=== PATIENT | female | born 1940 | race Caucasian/White ===

== ENCOUNTER 2016-04-18 13:29 | Outpatient (CLI) | payer MEDICARE, BC | END 2016-04-18 23:59 | DX: Z79.899 Other long term (current) drug therapy (principal); E78.00 Pure hypercholesterolemia, unspecified ==

== ENCOUNTER 2016-07-08 10:30 | Outpatient (CLI) | payer MEDICARE, BC | END 2016-07-08 10:31 | disposition home or self-care (01) | DX: Z12.31 Encounter for screening mammogram for malignant neoplasm of breast (principal) ==

== ENCOUNTER 2016-07-23 11:45 | Outpatient (CLI) | payer MEDICARE, BC ==
[2016-07-23 19:37] LABS: H. PYLORI IGG ANTIBODY Negative (Negative)
[2016-07-23 19:38] LABS: HPYLORI NEG QC Negative (Negative); HPYLORI POS QC POSITIVE (Positive)
[2016-07-23 19:41] LABS: ALBUMIN/GLOBULIN RATIO 1.5 (1.0-2.2); BILIRUBIN,TOTAL 0.9 mg/dL (0.2-1.0); CALCIUM 9.3 mg/dL (8.5-10.3); POTASSIUM 3.8 mmol/L (3.5-5.0); TOTAL PROTEIN 6.8 g/dL (6.7-8.2)
[2016-07-23 19:51] LABS: BASOPHILS % (AUTO) 0.7 %; EOSINOPHILS # (AUTO) 0.1 10^3/uL (0.0-0.7); HCT - HEMATOCRIT 35.9 % (37.0-47.0); HGB - HEMOGLOBIN 11.7 g/dL (12.0-16.0); LYMPHOCYTES # (AUTO) 1.5 10^3/uL (1.5-3.5); LYMPHOCYTES % (AUTO) 28.5 %; MEAN CORPUSCULAR HEMOGLOBIN 30.2 pg (27.0-31.0); MEAN CORPUSCULAR HGB CONC 32.5 g/dL (32.0-36.0); MEAN CORPUSCULAR VOLUME 92.8 fL (81.0-99.0); MEAN PLATELET VOLUME 10.5 fL (7.9-10.8); MONOCYTES # (AUTO) 0.5 10^3/uL (0.0-1.0); MONOCYTES % (AUTO) 10.5 %; NEUTROPHILS % (AUTO) 58.3 %; NUCLEATED RED BLOOD CELLS AUTO 0.1 /100WBC; RED BLOOD COUNT 3.87 10^6/uL (4.20-5.40); RED CELL DISTRIBUTION WIDTH 13.3 % (12.0-15.0); UNCORRECTED WHITE BLOOD COUNT 5.1 x10^3/uL; WHITE BLOOD COUNT 5.1 x10^3/uL (4.8-10.8)
== END 2016-07-23 23:59 | disposition home or self-care (01) ==
LOC: LAB.WCP 11:45
PROVIDERS: ATTEND Physician Assistant Medical
DX: R19.4 Change in bowel habit (principal)
CPT/HCPCS: 36415; 80053; 82150; 83690; 84443; 85025; 87339

== ENCOUNTER 2016-07-24 11:43 | Outpatient (CLI) | payer MEDICARE, BC ==
[2016-07-25 20:42] LABS: TEST RESULT REPORT (())
== END 2016-07-24 11:44 | disposition home or self-care (01) ==
LOC: LAB.R 11:43
PROVIDERS: ATTEND Physician Assistant Medical
DX: R19.4 Change in bowel habit (principal)
CPT/HCPCS: 81599; 87045; 87046; 87177; 87209; 87329; 87338; 87493

== ENCOUNTER 2016-08-19 11:02 | Outpatient (CLI) | payer MEDICARE, BC ==
[2016-08-19] MEDS ORDERED: IOPAMIDOL-300 50 ML VIAL PO ONE (13:00)
[2016-08-19] MEDS ORDERED: IOPAMIDOL-300 100 ML VIAL IVP ONE (13:00)
--- NOTE | 2016-08-19 14:54 | CT Report ---
CONTRAST-ENHANCED CT EXAM OF THE ABDOMEN AND PELVIS: 08/19/2016 CLINICAL HISTORY: A 76-year-old female who has a change in her bowel habits as well as abdominal kevon n. TECHNIQUE: The patient received 100 mL of Isovue-300. In accordance with CT protocol optimization, one or more of the following dose reduction techniques w ere utilized for this exam: automated exposure control, adjustment of mA and/or KV based on patient size, or use of iterative reconstructive technique. FINDINGS: Lower lung garcia demonstrate some respiratory motion which obscures the detail. There is a suggestion of some mild atelectasis in the lower lobes. A 2.3 cm hypodense lesion is noted in the superior aspect of the right lobe of the liver. This most likely represents a benign cyst with CT numbers of -3.5 Hounsfield units. Spleen appears normal. Gallbladder shows no wall thickening. There is some hypodense material withi n the gallbladder that may represent sludge. Other possibility would be a small layer of noncalcifie d stones. Suggest a gallbladder ultrasound be considered for further evaluation. No wall thickening is seen. Common hepatic and common bile ducts show no significant abnormality. Pancreas appears no rmal. Adrenal glands are normal. Kidneys show no significant abnormality. Bladder is partially obscured b y bilateral total hip prostheses. Mild bladder distension is seen. Detail of other pelvic structure s are obscured by the metallic artifact as a result of the total hip prostheses. Periaortic and pericaval regions demonstrate a few small left periaortic lymph nodes, the largest of which measures 1.4 cm. This is a nonspecific finding. No significant pelvic adenopathy is seen. Vascular calcification is noted in the abdominal aorta and its iliac branches. Bowel gas pattern demonstrates the small bowel to be normal. Colon shows evidence of constipation wi th a moderate amount of stool present in the transverse and right colon. The appendix is not definit bipin seen but no evidence of inflammation is seen in the right lower quadrant. The terminal ileum guillermina ears normal. Bones demonstrate significant dextroscoliosis of the lumbar spine. Significant disk space narrowing is noted at L3-4 and L5-S1. Moderate degree of disk space narrowing is noted at L4-5. Mild spondylo listhesis is noted at L4-5. Bilateral total hip prostheses are seen. Bttpytvk-az-xmgzru central spi nal canal stenosis is seen at L4-5. IMPRESSION: 1. A 2.3 CM BENIGN CYST IS NOTED IN THE SUPERIOR ASPECT OF THE RIGHT LOBE OF THE LIVER. 2. GALLBLADDER DEMONSTRATES NONCALCIFIED DENSITIES SEEN IN ITS DEPENDENT PORTION. CANNOT EXCLUDE NO NCALCIFIED CALCULI. SUGGEST GALLBLADDER ULTRASOUND FOR FURTHER EVALUATION. 3. SIGNIFICANT OSTEOARTHRITIS OF THE LUMBAR SPINE IS SEEN WITH SIGNIFICANT DEXTROSCOLIOSIS. SEVERE CENTRAL SPINAL STENOSIS IS NOTED AT L4-5 IN ASSOCIATION WITH A GRADE 1 SPONDYLOLISTHESIS. SPONDYLOLI STHESIS MOST LIKELY IS RELATED TO OSTEOARTHRITIS OF THE FACET JOINTS. 4. CONSTIPATION. 5. [id number] NONSPECIFIC BLADDER DISTENTION. 6. BILATERAL TOTAL HIP PROSTHESES ARE SEEN IN PLACE. JOB #: [id number] EXT JOB #:[id number]
== END 2016-08-19 11:03 | disposition home or self-care (01) ==
LOC: DI 11:02
PROVIDERS: ATTEND Physician Assistant Medical
DX: K76.89 Other specified diseases of liver (principal); K82.9 Disease of gallbladder, unspecified; K59.00 Constipation, unspecified; N32.89 Other specified disorders of bladder; M47.896 Other spondylosis, lumbar region; M41.86 Other forms of scoliosis, lumbar region; M43.16 Spondylolisthesis, lumbar region; Z96.643 Presence of artificial hip joint, bilateral
CPT/HCPCS: 74177; Q9967

== ENCOUNTER 2016-09-25 08:48 | Outpatient (CLI) | payer MEDICARE, BC ==
--- NOTE | 2016-09-25 13:47 | Nuclear Medicine Report ---
EXAM: HEPATOBILIARY SCAN WITH CCK/KINEVAC ADMINISTRATION EXAM DATE: 09/25/2016 09:23 AM. CLINICAL HISTORY: DIARRHEA. COMPARISON: CT 08/19/2016. TECHNIQUE: Following the intravenous administration of 6 mCi of Tc99m Mebrofenin, a hepatobiliary sca n was done centered on the liver and gallbladder in multiple sequential images and projections. Following the intravenous administration of 1.85 mcg of CCK/ Kinevac over the course of approximately 60 minutes, dynamic imaging was done and the gallbladder ejection fraction was calculated. FINDINGS: Normal extraction of tracer from the blood pool indicating normal hepatocellular function. The liver size and shape is grossly within normal limits. There is activity visualized within the bile ducts, gallbladder, and small bowel within the first kathy r. With CCK administration, the gallbladder demonstrates an effective contraction. The gallbladder eject ion fraction is calculated to be 75%, well above the lower limit of normal of 38% for a 60-minute inj ection. The patient did not report symptoms after CCK administration. No evidence of enteric reflux into the stomach. No significant collection of tracer remaining in the common bile duct by the end of the study. IMPRESSION: 1. Patent cystic duct. 2. Patent common bile duct. 3. Negative for acute or chronic cholecystitis. 4. No enterogastric bile reflux. 5. Normal gallbladder ejection fraction of 75%. [facility] Referring Provider Line: [phone] SITE ID: [id number]
--- NOTE | 2016-09-25 13:56 | Ultrasound Report ---
RIGHT UPPER QUADRANT ULTRASOUND: 09/25/2016 CLINICAL INDICATION: Diarrhea. TECHNIQUE: Real-time scanning was performed with claim service representative static images obtained. FINDINGS: The liver measures 14.1 cm. A 3.1 x 2.4 x 2.1 cm cyst is confirmed in the superior right l obe. Hepatic echotexture is mildly increased, suspicious for mild fatty infiltration. No intrahepatic biliary dilatation or focal solid parenchymal lesion is seen. The common bile duct measures 5 mm. Th e gallbladder demonstrates tiny calculi. No wall thickening or pericholecystic fluid is present. The right kidney measures 10.3 cm, and demonstrates no hydronephrosis. No free fluid is present. IMPRESSION: CHOLELITHIASIS, WITHOUT EVIDENCE OF ACUTE CHOLECYSTITIS OR BILIARY DILATATION. JOB #: [id number] EXT JOB #:[id number]
== END 2016-09-25 08:49 | disposition home or self-care (01) ==
LOC: DI 08:48
PROVIDERS: ATTEND Physician Assistant Medical
DX: K80.20 Calculus of gallbladder without cholecystitis without obstruction (principal)
CPT/HCPCS: 76705; 78227; A9537

== ENCOUNTER 2017-03-10 08:52 | Outpatient (CLI) | payer MEDICARE, BC ==
[2017-03-10] MEDS ORDERED: IOPAMIDOL-300 100 ML VIAL ONE (09:05)
[2017-03-10] MEDS ORDERED: IOPAMIDOL-300 100 ML VIAL IVP ONE (09:21)
--- NOTE | 2017-03-10 13:30 | CT Report ---
DATE OF SERVICE: 03/10/2017 CT OF CHEST WITH CONTRAST: 03/10/2017 CLINICAL INDICATION: Pulmonary nodule. COMPARISON: 11/27/2015. TECHNIQUE: Axial CT images of the chest were obtained with 80 mL Isovue 300 intravenously FINDINGS: The heart and great vessels are unremarkable. No hilar or mediastinal lymphadenopathy is present. The pulmonary nodule in the lateral right upper lobe is stable, measuring 1.3 x 1.0 cm (previously 1. 4 x 1.1 cm). No new pulmonary nodule or mass lesion is identified. No effusion or pneumothorax is present. Osseous structures demonstrate degenerative changes. Limited evaluation of upper abdominal structures demons trates normal adrenal glands. IMPRESSION: STABLE NODULE IN THE POSTERIOR RIGHT UPPER LOBE. NO SIGNIFICANT INTERVAL CHANGE. In accordance with CT protocol optimization, one or more of the following dose reduction techniques were utilized for this exam: automated exposure control, adjustment of mA and/or KV based on patient size , or use of iterative reconstructive technique. TD: 03/10/2017 14:29
== END 2017-03-10 08:53 | disposition home or self-care (01) ==
LOC: DI 08:52
PROVIDERS: ATTEND Physician Assistant Medical
DX: R91.1 Solitary pulmonary nodule (principal)
CPT/HCPCS: 71260; Q9967

== ENCOUNTER 2017-05-30 17:04 | Outpatient (CLI) | payer MEDICARE, BC ==
--- NOTE | 2017-05-30 19:39 | XRAY Report ---
EXAMS: 1. RIGHT KNEE RADIOGRAPHY 2. LEFT KNEE RADIOGRAPHY EXAM DATE:05/30/2017 05:39 PM. CLINICAL HISTORY:Knee pain, bilateral. COMPARISON: Right knee radiographs 03/23/2007. TECHNIQUE: 3 views each. FINDINGS: Right Knee: Bones: No acute displaced fracture. No suspicious focal osseous lesion. There is diffuse osseous johnson neralization. Well-corticated osseous fragments posterior to the distal femur, possibly sequela of re mote injury or surgery. Joints: Post total knee arthroplasty without evidence of hardware loosening or complication. No effus ion. No subluxation. Soft Tissues: Possible soft tissue fullness within the infrapatellar bursa. Left Knee: Bones: No acute displaced fracture. No suspicious focal osseous lesion. There is diffuse osseous johnson neralization. Joints: Post total knee arthroplasty without evidence of hardware loosening or complication. No effus ion. No subluxation. Soft Tissues: Probable soft tissue swelling versus a small hematoma/contusion in the suprapatellar so ft tissues. Mild soft tissue fullness in the infrapatellar region/infrapatellar bursa. IMPRESSION: 1. No acute osseous abnormality or evidence of hardware loosening or failure post bilateral total kne e arthroplasty. 2. Soft tissue prominence in the infrapatellar regions bilaterally, more so on the right, possibly re presenting bursitis or a small hematoma. [facility] Referring Provider Line: [phone] SITE ID: [id number]
== END 2017-05-30 17:05 | disposition home or self-care (01) ==
LOC: DI 17:04
PROVIDERS: ATTEND Physician Assistant Medical
DX: M25.561 Pain in right knee (principal); M25.562 Pain in left knee; Z96.653 Presence of artificial knee joint, bilateral

== ENCOUNTER 2017-06-06 07:31 | Outpatient (CLI) | payer MEDICARE, BC ==
[2017-06-06 12:25] LABS: ALBUMIN 3.9 g/dL (3.2-5.5); ALBUMIN/GLOBULIN RATIO 1.4 (1.0-2.2); ALKALINE PHOSPHATASE 59 IU/L (42-121); ALT ALANINE AMINOTRANSFERASE 16 IU/L (10-60); AST ASPARTATE AMINOTRANSFERASE 23 IU/L (10-42); BILIRUBIN,TOTAL 0.6 mg/dL (0.2-1.0); BUN - BLOOD UREA NITROGEN 19 mg/dL (6-20); CALCIUM 8.6 mg/dL (8.5-10.3); CARBON DIOXIDE - CO2 30 mmol/L (21-32); CHLORIDE 96 mmol/L (101-111); CHOL/HDL RATIO 2.6 (<4.4); CHOLESTEROL 126 mg/dL; GFR - MDRD 54 (>89); GLUCOSE 88 mg/dL (70-100); HDL CHOLESTEROL 48 mg/dL; LDL CHOLESTEROL,CALCULATED 58 mg/dL; LDL/HDL RATIO 1.2 (<4.4); SODIUM 133 mmol/L (135-145); TOTAL PROTEIN 6.6 g/dL (6.7-8.2); VLDL CHOLESTEROL 20 mg/dL
== END 2017-06-06 07:32 | disposition home or self-care (01) ==
LOC: LAB.WCP 07:31
PROVIDERS: ATTEND Physician Assistant Medical
DX: E78.00 Pure hypercholesterolemia, unspecified (principal); Z51.81 Encounter for therapeutic drug level monitoring; Z79.899 Other long term (current) drug therapy
CPT/HCPCS: 36415; 80053; 80061; 83721

== ENCOUNTER 2017-07-08 08:00 | Outpatient (CLI) | payer MEDICARE, BC ==
[2017-07-08 12:45] LABS: CALCIUM 8.9 mg/dL (8.5-10.3); CREATININE 0.9 mg/dL (0.4-1.0)
== END 2017-07-08 08:01 | disposition home or self-care (01) ==
LOC: LAB.WCP 08:00
PROVIDERS: ATTEND Physician Assistant Medical
DX: I10 Essential (primary) hypertension (principal)
CPT/HCPCS: 36415; 80048

== ENCOUNTER 2017-07-10 08:19 | Outpatient (CLI) | payer MEDICARE, BC ==
--- NOTE | 2017-07-15 13:13 | Mammography Report ---
DIGITAL SCREENING MAMMOGRAM: 07/10/2017 CLINICAL INDICATION: A 76-year-old for screening. COMPARISON: 07/2016, 07/2015, 07/2014, 05/2013, 05/2012, 05/2011, 11/2010, 05/2010, 10/2009, 04/2009, 03/2009. TECHNIQUE: Routine CC and MLO projections as well as bilateral laterally exaggerated craniocaudal views were obtained of the breasts. FINDINGS: The breasts again demonstrate heterogeneously dense fibroglandular parenchyma bilaterally. Coarse and punctate, typically benign calcifications are present. No suspicious masses, clustered microcalcifications, or regions of architectural distortion are identified. IMPRESSION: BENIGN FINDINGS. RECOMMENDATION: Routine annual screening unless otherwise clinically indicated. BI-RADS CATEGORY 2 - BENIGN FINDINGS. STANDARD QUALIFYING STATEMENTS: 1. This examination was reviewed with the aid of Computer-Aided Detection (CAD). 2. A negative or benign imaging report should not delay biopsy if clinically suspicious findings are present. Consider surgical consultation if warranted. More than 5% of cancers are not identified by imaging. 3. Dense breasts may obscure an underlying neoplasm. TD: 07/15/2017 12:50
== END 2017-07-10 08:20 | disposition home or self-care (01) ==
LOC: DI 08:19
PROVIDERS: ATTEND Physician Assistant Medical
DX: Z12.31 Encounter for screening mammogram for malignant neoplasm of breast (principal)
CPT/HCPCS: 77067

== ENCOUNTER 2017-07-17 08:00 | Outpatient (CLI) | payer MEDICARE, BC | END 2017-07-17 08:01 | LOC: LAB.WCP 08:00 | PROVIDERS: ATTEND Internal Medicine Gastroenterology | DX: R19.7 Diarrhea, unspecified (principal) | CPT/HCPCS: 87493 ==

== ENCOUNTER 2018-04-08 08:24 | Outpatient (CLI) | payer MEDICARE, BC ==
[2018-04-08 12:38] LABS: ALBUMIN 3.7 g/dL (3.2-5.5); ALBUMIN/GLOBULIN RATIO 1.2 (1.0-2.2); ALKALINE PHOSPHATASE 49 IU/L (42-121); ALT ALANINE AMINOTRANSFERASE 18 IU/L (10-60); AST ASPARTATE AMINOTRANSFERASE 24 IU/L (10-42); BILIRUBIN,TOTAL 0.9 mg/dL (0.2-1.0); BUN - BLOOD UREA NITROGEN 26 mg/dL (6-20); CALCIUM 8.8 mg/dL (8.5-10.3); CARBON DIOXIDE - CO2 30 mmol/L (21-32); CHLORIDE 95 mmol/L (101-111); CHOL/HDL RATIO 2.2 (<4.4); CHOLESTEROL 124 mg/dL; CREATININE 0.9 mg/dL (0.4-1.0); GFR - MDRD 61 (>89); GLUCOSE 89 mg/dL (70-100); HDL CHOLESTEROL 57 mg/dL; LDL CHOLESTEROL,CALCULATED 54 mg/dL; LDL/HDL RATIO 0.9 (<4.4); SODIUM 133 mmol/L (135-145); TOTAL PROTEIN 6.8 g/dL (6.7-8.2); VLDL CHOLESTEROL 13 mg/dL
== END 2018-04-08 08:25 | disposition home or self-care (01) ==
LOC: LAB.WCP 08:24
PROVIDERS: ATTEND Physician Assistant Medical
DX: E78.00 Pure hypercholesterolemia, unspecified (principal); I10 Essential (primary) hypertension
CPT/HCPCS: 36415; 80053; 80061; 83721

== ENCOUNTER 2018-07-20 16:29 | Outpatient (CLI) | payer MEDICARE, BC ==
--- NOTE | 2018-07-21 10:25 | Mammography Report ---
Reason: SCREENING MAMMO Procedure Date: 07/20/2018 Accession Number: [id number] / [id number] Procedure: [facility]RA - Screening Mammo w/Mehdi CPT Code: FULL RESULT: EXAM: Screening Mammo w/Mehdi DATE: 07/20/2018 4:58 PM CLINICAL HISTORY: Screening encounter. 14 years of hormone cream use. TECHNIQUE: (B) - Bilateral CC, laterally exaggerated CC, MLO views were obtained. COMPARISON: 07/10/2017 through 07/26/2014. PARENCHYMAL PATTERN: (D) - The breast(s) demonstrate(s) heterogeneously dense fibroglandular parenchyma. FINDINGS: There are coarse typically benign calcifications. There are no suspicious masses, calcifications, or areas of distortion. IMPRESSION: Benign findings. BI-RADS category 2. RECOMMENDATION: (ANNUAL) - Recommend routine annual screening mammography. BI-RADS CATEGORY: (2) - Benign Findings. STANDARD QUALIFYING STATEMENTS: 1. This examination was not reviewed with the aid of Computer-Aided Detection (CAD). 2. A negative or benign imaging report should not preclude biopsy if clinically suspicious findings are present. 3. Dense breasts may obscure an underlying neoplasm. 4. This examination was reviewed with the aid of 3D breast imaging (tomosynthesis).
== END 2018-07-20 16:30 | disposition home or self-care (01) ==
LOC: DI 16:29
DX: Z12.31 Encounter for screening mammogram for malignant neoplasm of breast (principal)
CPT/HCPCS: 77063; 77067

== ENCOUNTER 2019-02-17 09:21 | Outpatient (CLI) | payer MEDICARE, BC ==
--- NOTE | 2019-02-17 18:33 | XRAY Report ---
Reason: COUGH Procedure Date: 02/17/2019 Accession Number: [id number] / [id number] Procedure: WCP - Chest 2 View X-Ray CPT Code: 64261 Final Report FULL RESULT: EXAM: CHEST RADIOGRAPHY EXAM DATE: 02/17/2019 09:21 AM. CLINICAL HISTORY: Cough and congestion for 2 weeks. COMPARISON: CHEST 2 VIEW PA/LAT 10/27/2015 7:04 PM. TECHNIQUE: 2 views. FINDINGS: Lungs/Pleura: Right upper lobe nodule is smaller, 7 mm size. No other focal opacities evident. No pleural effusion. No pneumothorax. Normal volumes. Mediastinum: Heart and mediastinal contours are unremarkable. Other: Stable mild T9 compression fracture, otherwise no bony abnormality identified. IMPRESSION: 1. Right upper lobe nodule, smaller than prior exam, otherwise clear lungs. 2. Stable T9 compression fracture. [facility]
== END 2019-02-17 23:59 | disposition home or self-care (01) ==
LOC: DI.WCP 09:21
PROVIDERS: ATTEND Nurse Practitioner Family
DX: R05 Cough (principal); R91.1 Solitary pulmonary nodule
CPT/HCPCS: 71046

== ENCOUNTER 2019-08-06 07:36 | Outpatient (CLI) | payer MEDICARE, BC ==
--- NOTE | 2019-08-06 09:51 | XRAY Report ---
Reason: DYSPNEA ON EXERTION Procedure Date: 08/06/2019 Accession Number: [id number] / [id number] Procedure: WCP - Chest 2 View X-Ray CPT Code: 18280 Final Report FULL RESULT: PROCEDURE: Chest 2 View X-Ray INDICATIONS: DYSPNEA ON EXERTION TECHNIQUE: 2 view(s) of the chest. COMPARISON: CXR 02/17/2019 FINDINGS: Surgical changes and devices: None. Lungs and pleura: No pleural effusions or pneumothorax. There is a mild retrocardiac opacity seen on lateral view. Mediastinum: Mediastinal contours are normal. Heart size is enlarged. Bones and chest wall: No suspicious bony abnormalities. Soft tissues appear unremarkable. IMPRESSION: Mild retrocardiac opacity seen on lateral view. Recommend short interval imaging follow-up after appropriate therapy for infectious etiology such as pneumonia to document resolution and exclude presence of neoplastic mass lesion. Reviewed by: Hanna Almonte MD on 08/06/2019 9:50 AM PDT Approved by: Hanna Almonte MD on 08/06/2019 9:50 AM PDT Station ID: [id number]
[2019-08-06 11:47] LABS: MEAN CORPUSCULAR HEMOGLOBIN 29.9 pg (27.0-31.0); MEAN CORPUSCULAR HGB CONC 31.7 g/dL (32.0-36.0); MEAN CORPUSCULAR VOLUME 94.3 fL (81.0-99.0); MEAN PLATELET VOLUME 11.4 fL (7.9-10.8); RED BLOOD COUNT 4.01 10^6/uL (4.20-5.40); RED CELL DISTRIBUTION WIDTH 12.5 % (12.0-15.0); WHITE BLOOD COUNT 4.7 x10^3/uL (4.8-10.8)
[2019-08-06 12:12] LABS: CALCIUM 8.7 mg/dL (8.5-10.3); CREATININE 0.9 mg/dL (0.4-1.0)
== END 2019-08-06 07:37 | disposition home or self-care (01) ==
LOC: DI.WCP 07:36
PROVIDERS: ATTEND Family Medicine
DX: R91.8 Other nonspecific abnormal finding of lung field (principal); R06.09 Other forms of dyspnea
CPT/HCPCS: 36415; 71046; 80048; 83880; 85027

== ENCOUNTER 2019-08-26 08:06 | Outpatient (CLI) | payer MEDICARE, BC | END 2019-08-26 08:07 | disposition home or self-care (01) | LOC: DI 08:06 | PROVIDERS: ATTEND Family Medicine | DX: I51.9 Heart disease, unspecified (principal); I49.3 Ventricular premature depolarization; I51.7 Cardiomegaly | CPT/HCPCS: 93306 ==

== ENCOUNTER 2019-09-08 12:16 | Outpatient (CLI) | payer MEDICARE, BC ==
[2019-09-08] MEDS ORDERED: REGADENOSON 0.4 MG/5 ML SYRINGE IVP ONE ×2 (13:32→14:57)
[2019-09-08] MEDS ORDERED: AMINOPHYLLINE 250 MG/10 ML VIAL ONE (13:33)
--- NOTE | 2019-09-08 14:49 | CARDIAC PROCEDURE NOTE ---
DATE OF SERVICE: 09/08/2019 Physician: Lidia Sánchez MD, [facility] INDICATION: Dyspnea on exertion. CARDIAC RISK FACTORS: Advanced age, postmenopausal status, hypertension, hyperlipidemia, family history of heart disease. DESCRIPTION OF PROCEDURE: After signing informed consent, the patient underwent a Lexiscan pharmaceutical stress test with nuclear myocardial perfusion imaging. RESTING HEART RATE: 58. PEAK HEART RATE: 75. RESTING BLOOD PRESSURE: 123/70. PEAK BLOOD PRESSURE: 132/66. Lexiscan was infused per protocol. The patient described mild to moderate shortness of breath, and no other symptoms. Oxygen saturation was 99% on room air throughout the entire test. RESTING EKG: Ectopic atrial rhythm, frequent PAC's, otherwise WNL. EKG AT PEAK: No new ST-segment or T-wave changes to suggest ischemia. SUMMARY 1. Abnormal resting EKG. 2. No EKG changes developed to suggest ischemia. 3. The patient did report "shortness of breath" but appeared comfortable, respiratory rate did not increase, oxygen saturation remained 99% on room air at this point. 4. Nuclear images reported separately. 5. This patient's cardiac risk based on all the above: Moderate. cc: Marlyn Vazquez DO TD: 09/08/2019 14:35 [facility]
--- NOTE | 2019-09-09 10:05 | Nuclear Medicine Report ---
PROCEDURE: Rest and exercise myocardial perfusion SPECT with gated imaging and ejection fraction INDICATIONS: DYSPNEA ON EXERTION RADIOPHARMACEUTICAL: 15.9 mCi Tc-99m sestamibi IV at rest and 47.8 mCi Tc-99m sestamibi IV at peak e xercise. Nbi-xhw-wmbwxvbr was performed. TECHNIQUE: Radiopharmaceutical was injected at peak stress test, and also at rest. SPECT images wer e obtained. SPECT myocardial perfusion images were displayed in short axis, horizontal long axis, an d vertical long axis views. Gated images were reviewed using AutoQUANT software. COMPARISON: None. FINDINGS: Raw data: There is good myocardial labeling by radiotracer. No significant motion artifacts. Lung- to-heart ratio is 0.32 (normal is less than 0.38 for tetrafosmin tracer). Left ventricle function: Gated images demonstrate normal left ventricle wall thickening. No segment al wall motion abnormality. No transient ischemic dilation; TID is 1.07 (normal less than 1.3). The left ventricle resting end-diastolic volume is mL. Left ventricle stress ejection fraction is 8 3%; normal values are above 45%. Myocardial perfusion: There is normal distribution of activity in the left and right ventricular emma cardium. No fixed or reversible perfusion defects. IMPRESSION: 1. Normal myocardial perfusion study with no fixed or reversible perfusion defects. 2. Normal left ventricular function with no segmental wall motion abnormalities and normal stress LVE F of 83%. PQRS ATTESTATIONS: Measure 322 - Is this imaging test primarily performed on a low-risk surgery patient for preoperative evaluation within 30 days preceding their low-risk non-cardiac surgery? Low-risk surgery is defined as cardiac or myocardial infarction less than 1%, including (but not limited to) endoscopic pr ocedures, superficial procedures, cataract surgery, and excisional breast surgery: Answer: No Measure 323 - Is this imaging test performed primarily for the monitoring of an asymptomatic patient who had percutaneous coronary intervention on the visit date or within 2 years of the visit date? An swer: No Measure 324 - Is this imaging test performed primarily for the initial detection and risk assessment on an asymptomatic, low coronary heart disease patient? Low CHD risk definition = clinicians should consider the maximum number of available patient factors used to estimate risk based on [place] (A TP III criteria), typically age, gender, diabetes, smoking status, and use of blood pressure medicati on, and integrate age appropriate estimates for missing elements, such as LDL or standard blood press ure. Answer: No Reviewed by: Rebeka Ordoñez MD, PhD on 09/09/2019 10:03 AM PDT Approved by: Rebeka Ordoñez MD, PhD on 09/09/2019 10:03 AM PDT Station ID: [id number]
== END 2019-09-08 12:17 | disposition home or self-care (01) ==
LOC: DI 12:16
PROVIDERS: ATTEND Family Medicine
DX: R94.31 Abnormal electrocardiogram [ECG] [EKG] (principal); I10 Essential (primary) hypertension; E78.5 Hyperlipidemia, unspecified; Z78.0 Asymptomatic menopausal state; Z82.49 Family history of ischemic heart disease and other diseases of the circulatory system
CPT/HCPCS: 78452; 93016; 93017; 93018; A9500; J2785

== ENCOUNTER 2019-09-08 12:41 | Outpatient (CLI) | payer MEDICARE, BC ==
[2019-09-08] MEDS ORDERED: REGADENOSON 0.4 MG/5 ML SYRINGE IVP ONE (13:28)
[2019-09-08] MEDS ORDERED: AMINOPHYLLINE 250 MG/10 ML VIAL ONE (13:30)
--- NOTE | 2019-09-09 08:54 | Mammography Report ---
BILATERAL DIGITAL SCREENING MAMMOGRAM 3D/2D: 09/08/2019 CLINICAL: Routine screening. Comparison is made to exams dated: 07/20/2018 mammogram, 07/10/2017 mammogram, and 07/08/2016 mammogram - [facility]. The tissue of both breasts is heterogeneously dense. This may lower the sensitivity of mammography. No significant masses, calcifications, or other findings are seen in either breast. There has been no significant interval change. IMPRESSION: NEGATIVE There is no mammographic evidence of malignancy. A 1 year screening mammogram is recommended. This exam was interpreted at Station ID: [id number]. NOTE: For mammograms, a report in lay terms will be sent to the patient. Approximately 15% of breast malignancies will not be visualized mammographically. In the management of a palpable breast mass, a negative mammogram must not discourage biopsy of a clinically suspicious lesion. Electronically Signed By: Eusebia jose/kerarad:09/08/2019 16:55:22 ACR BI-RADS Category 1: Negative 3341F PARENCHYMAL PATTERN: (D) - The breast(s) demonstrate(s) heterogeneously dense fibroglandular ravi pacheco. BI-RADS CATEGORY: (1) - 1 RECOMMENDATION: (ANNUAL) - Recommend routine annual screening mammography. [id number] 1 year screening LATERALITY: (B)
== END 2019-09-08 12:42 | disposition home or self-care (01) ==
LOC: DI 12:41
DX: Z12.31 Encounter for screening mammogram for malignant neoplasm of breast (principal)
CPT/HCPCS: 77063; 77067

== ENCOUNTER 2020-03-17 09:27 | Outpatient (CLI) | payer MEDICARE, BC ==
[2020-03-17 12:45] LABS: CALCIUM 9.2 mg/dL (8.5-10.3); CREATININE 1.1 mg/dL (0.4-1.0)
== END 2020-03-17 09:28 | disposition home or self-care (01) ==
LOC: LAB.N 09:27
PROVIDERS: ATTEND Physician Assistant Medical
DX: I10 Essential (primary) hypertension (principal)
CPT/HCPCS: 36415; 80048

== ENCOUNTER 2020-05-02 08:00 | Outpatient (CLI) | payer MEDICARE, BC ==
[2020-05-02 12:25] LABS: CALCIUM 8.9 mg/dL (8.5-10.3); CREATININE 1.2 mg/dL (0.4-1.0)
== END 2020-05-02 23:59 | disposition home or self-care (01) ==
LOC: LAB.WCP 08:00
PROVIDERS: ATTEND Physician Assistant Medical
DX: N18.9 Chronic kidney disease, unspecified (principal)
CPT/HCPCS: 36415; 80048

== ENCOUNTER 2020-09-08 08:00 | Outpatient (CLI) | payer MEDICARE, BC ==
[2020-09-08 13:11] LABS: ALBUMIN 4.2 g/dL (3.2-5.5); ALBUMIN/GLOBULIN RATIO 1.5 (1.0-2.2); ALKALINE PHOSPHATASE 60 IU/L (42-121); ALT ALANINE AMINOTRANSFERASE 17 IU/L (10-60); AST ASPARTATE AMINOTRANSFERASE 25 IU/L (10-42); BILIRUBIN,TOTAL 0.9 mg/dL (0.2-1.0); BUN - BLOOD UREA NITROGEN 22 mg/dL (6-20); CALCIUM 9.1 mg/dL (8.5-10.3); CARBON DIOXIDE - CO2 31 mmol/L (21-32); CHLORIDE 98 mmol/L (101-111); CHOL/HDL RATIO 2.7 (<4.4); CHOLESTEROL 138 mg/dL; CREATININE 1.1 mg/dL (0.4-1.0); GFR - MDRD 48 (>89); GLUCOSE 89 mg/dL (70-100); HDL CHOLESTEROL 51 mg/dL; LDL CHOLESTEROL,CALCULATED 70 mg/dL; LDL/HDL RATIO 1.4 (<4.4); SODIUM 137 mmol/L (135-145); TRIGLYCERIDES 83 mg/dL; VLDL CHOLESTEROL 17 mg/dL
== END 2020-09-08 08:01 | disposition home or self-care (01) ==
LOC: LAB.WCP 08:00
PROVIDERS: ATTEND Physician Assistant Medical
DX: E78.5 Hyperlipidemia, unspecified (principal)
CPT/HCPCS: 36415; 80053; 80061; 83721

== ENCOUNTER 2020-10-03 14:16 | Outpatient (CLI) | payer MEDICARE, BC ==
--- NOTE | 2020-10-04 15:25 | Mammography Report ---
BILATERAL DIGITAL SCREENING MAMMOGRAM 3D/2D: 10/03/2020 CLINICAL: Routine screening. Comparison is made to exams dated: 09/08/2019 mammogram, 07/20/2018 mammogram, 07/10/2017 mammogram, 07/08 mammogram, 07/19/2015 mammogram, and 07/26/2014 mammogram - [facility]. The ti ssue of both breasts is heterogeneously dense. This may lower the sensitivity of mammography. There are benign calcifications in both breasts. No significant masses, calcifications, or other findings are seen in either breast. There has been no significant interval change. IMPRESSION: BENIGN There is no mammographic evidence of malignancy. A 1 year screening mammogram is recommended. This exam was interpreted at Station ID: [id number]. NOTE: For mammograms, a report in lay terms will be sent to the patient. Approximately 15% of breast malignancies will not be visualized mammographically. In the management of a palpable breast mass, a negative mammogram must not discourage biopsy of a clinically suspicious lesion. Electronically Signed By: Hill Schulz acr/penrad:10/03/2020 14:58:54 ACR BI-RADS Category 2: Benign Finding(s) 3342F PARENCHYMAL PATTERN: (D) - The breast(s) demonstrate(s) heterogeneously dense fibroglandular ravi pacheco. BI-RADS CATEGORY: (2) - 2 RECOMMENDATION: (ANNUAL) - Recommend routine annual screening mammography. [id number] 1 year screening LATERALITY: (B)
== END 2020-10-03 14:17 | disposition home or self-care (01) ==
LOC: DI 14:16
DX: Z12.31 Encounter for screening mammogram for malignant neoplasm of breast (principal)

== ENCOUNTER 2020-12-21 15:37 | Outpatient (CLI) | payer MEDICARE, BC | END 2020-12-21 15:38 | disposition home or self-care (01) | LOC: COV 15:37 | PROVIDERS: ATTEND Family Medicine | DX: Z20.822 Contact with and (suspected) exposure to COVID-19 (principal) ==

== ENCOUNTER 2021-01-11 07:52 | Outpatient (CLI) | payer MEDICARE, BC ==
[2021-01-11 12:21] LABS: CALCIUM 9.3 mg/dL (8.5-10.3); POTASSIUM 4.3 mmol/L (3.5-5.0)
== END 2021-01-11 23:59 | disposition home or self-care (01) ==
LOC: LAB.WCP 07:52
PROVIDERS: ATTEND Physician Assistant Medical
DX: N18.9 Chronic kidney disease, unspecified (principal)
CPT/HCPCS: 36415; 80048

== ENCOUNTER 2021-07-12 08:53 | Outpatient (CLI) | payer MEDICARE, BC ==
[2021-07-12 12:11] LABS: BASOPHILS % (AUTO) 0.5 %; EOSINOPHILS # (AUTO) 0.2 10^3/uL (0.0-0.7); EOSINOPHILS % (AUTO) 2.9 %; HCT - HEMATOCRIT 38.6 % (37.0-47.0); HGB - HEMOGLOBIN 12.2 g/dL (12.0-16.0); LYMPHOCYTES # (AUTO) 1.7 10^3/uL (1.5-3.5); LYMPHOCYTES % (AUTO) 28.2 %; MEAN CORPUSCULAR HEMOGLOBIN 30.7 pg (27.0-31.0); MEAN CORPUSCULAR HGB CONC 31.6 g/dL (32.0-36.0); MEAN PLATELET VOLUME 11.9 fL (7.9-10.8); MONOCYTES # (AUTO) 0.4 10^3/uL (0.0-1.0); NEUTROPHILS # (AUTO) 3.6 10^3/uL (1.5-6.6); NEUTROPHILS % (AUTO) 61.2 %; PLT - PLATELET COUNT 180 10^3/uL (130-450); RED BLOOD COUNT 3.98 10^6/uL (4.20-5.40); RED CELL DISTRIBUTION WIDTH 12.9 % (12.0-15.0); WHITE BLOOD COUNT 5.9 x10^3/uL (4.8-10.8)
[2021-07-12 12:25] LABS: ALBUMIN 4.2 g/dL (3.2-5.5); ALBUMIN/GLOBULIN RATIO 1.5 (1.0-2.2); ALKALINE PHOSPHATASE 61 IU/L (42-121); ALT ALANINE AMINOTRANSFERASE 20 IU/L (10-60); AST ASPARTATE AMINOTRANSFERASE 27 IU/L (10-42); BILIRUBIN,TOTAL 0.9 mg/dL (0.2-1.0); BUN - BLOOD UREA NITROGEN 23 mg/dL (6-20); CALCIUM 9.2 mg/dL (8.5-10.3); CARBON DIOXIDE - CO2 29 mmol/L (21-32); CHLORIDE 99 mmol/L (101-111); CHOLESTEROL 153 mg/dL; CREATININE 1.1 mg/dL (0.4-1.0); GFR - MDRD 48 (>89); GLUCOSE 100 mg/dL (70-100); HDL CHOLESTEROL 51 mg/dL; LDL CHOLESTEROL,CALCULATED 77 mg/dL; LDL/HDL RATIO 1.5 (<4.4); POTASSIUM 4.1 mmol/L (3.5-5.0); SODIUM 136 mmol/L (135-145); TRIGLYCERIDES 127 mg/dL; VLDL CHOLESTEROL 25 mg/dL
== END 2021-07-12 08:54 | disposition home or self-care (01) ==
LOC: LAB.N 08:53
PROVIDERS: ATTEND Physician Assistant Medical
DX: E78.5 Hyperlipidemia, unspecified (principal); I10 Essential (primary) hypertension
CPT/HCPCS: 36415; 80053; 80061; 83721; 85025

== ENCOUNTER 2022-01-04 07:17 | Outpatient (CLI) | payer MEDICARE, BC ==
[2022-01-04 12:45] LABS: ALBUMIN 4.1 g/dL (3.2-5.5); ALBUMIN/GLOBULIN RATIO 1.4 (1.0-2.2); BILIRUBIN,TOTAL 0.9 mg/dL (0.2-1.0); CALCIUM 9.2 mg/dL (8.5-10.3)
== END 2022-01-04 07:18 | disposition home or self-care (01) ==
LOC: LAB.N 07:17
PROVIDERS: ATTEND Physician Assistant Medical
DX: E78.5 Hyperlipidemia, unspecified (principal)
CPT/HCPCS: 36415; 80053

== ENCOUNTER 2022-03-14 09:33 | Outpatient (CLI) | payer MEDICARE, BC ==
--- NOTE | 2022-03-15 12:50 | Mammography Report ---
BILATERAL DIGITAL SCREENING MAMMOGRAM 3D/2D: 03/14/2022 CLINICAL: Routine screening. Comparison is made to exams dated: 10/03/2020 mammogram, 09/08/2019 mammogram, 07/20/2018 mammogram, 07/10 mammogram, 07/08/2016 mammogram, and 07/19/2015 mammogram - [facility]. Both breasts are heterogeneously dense, which may obscure small masses (category c / 51-75% glandular tissue). There are benign calcifications in both breasts. No significant masses, calcifications, or other findings are seen in either breast. There has been no significant interval change. IMPRESSION: BENIGN There is no mammographic evidence of malignancy. A 1 year screening mammogram is recommended. Based on the Tyrer Cuzick model (a risk assessment model) the patients lifetime risk is 3.1% and her 10 year risk is 0.0%. According to the ACR, ACS, and NCCN guidelines, an annual breast MRI exam jerald g with mammogram is recommended if the patients lifetime risk is 20% or greater. This exam was interpreted at Station ID: [id number]. NOTE: For mammograms, a report in lay terms will be sent to the patient. Approximately 15% of breast malignancies will not be visualized mammographically. In the management of a palpable breast mass, a negative mammogram must not discourage biopsy of a clinically suspicious lesion. Electronically Signed By: Jed Johnson M.D. atharmeet/kerarad:03/14/2022 10:48:32 ACR BI-RADS Category 2: Benign Finding(s) 3342F PARENCHYMAL PATTERN: (D) - The breast(s) demonstrate(s) heterogeneously dense fibroglandular parenchy ma. BI-RADS CATEGORY: (2) - 2 RECOMMENDATION: (ANNUAL) - Recommend routine annual screening mammography. [id number] 1 year screening LATERALITY: (B)
== END 2022-03-14 09:34 | disposition home or self-care (01) ==
LOC: DI.N 09:33
DX: Z12.31 Encounter for screening mammogram for malignant neoplasm of breast (principal)

== ENCOUNTER 2022-06-03 06:59 | Outpatient (CLI) | payer MEDICARE, BC ==
--- NOTE | 2022-06-03 17:21 | Ultrasound Report ---
PROCEDURE: Carotid Doppler Complete INDICATIONS: NECK PAIN TECHNIQUE: Color and pulse Doppler interrogation was performed of both carotid systems, with image documentation and velocity measurements. COMPARISON: None. FINDINGS: Right side: Brachial blood pressure: 140/89 mm Hg. Common carotid artery peak systolic velocity: 62 cm/sec. Internal carotid artery peak systolic velocity: 102 cm/sec. Internal carotid artery end diastolic velocity: 30 cm/sec. External carotid artery peak systolic velocity: 69 cm/sec. ICA/CCA peak systolic ratio: 1.5 . Billy scale imaging description: Moderate plaque at bifurcation Percent internal carotid artery stenosis: Less than 50% . Vertebral artery: Flow direction is antegrade. Left side: Brachial blood pressure: 140/85 mm Hg. Common carotid artery peak systolic velocity: 55 cm/sec. Internal carotid artery peak systolic velocity: 82 cm/sec. Internal carotid artery end diastolic velocity: 31 cm/sec. External carotid artery peak systolic velocity: 56 cm/sec. ICA/CCA peak systolic ratio: 1.2 . Billy scale imaging description: Moderate plaque at bifurcation Percent internal carotid artery stenosis: Less than 50% . Vertebral artery: Flow direction is antegrade. IMPRESSION: Less than 50% stenosis of the internal carotid arteries bilaterally. The estimate of stenosis included in the report of the imaging study was calculated using the NASCET method Reviewed by: Hanna Almonte MD on 06/03/2022 5:19 PM PDT Approved by: Hanna Almonte MD on 06/03/2022 5:19 PM PDT Station ID: [id number]
== END 2022-06-03 07:00 | disposition home or self-care (01) ==
LOC: DI 06:59
PROVIDERS: ATTEND Physician Assistant Medical
DX: M54.2 Cervicalgia (principal); I65.23 Occlusion and stenosis of bilateral carotid arteries
CPT/HCPCS: 93880

== ENCOUNTER 2022-07-02 07:21 | Outpatient (CLI) | payer MEDICARE, BC ==
[2022-07-02 11:56] LABS: BASOPHILS % (AUTO) 0.7 %; EOSINOPHILS # (AUTO) 0.2 10^3/uL (0.0-0.7); EOSINOPHILS % (AUTO) 3.9 %; HCT - HEMATOCRIT 37.5 % (37.0-47.0); HGB - HEMOGLOBIN 11.6 g/dL (12.0-16.0); LYMPHOCYTES # (AUTO) 1.9 10^3/uL (1.5-3.5); LYMPHOCYTES % (AUTO) 34.9 %; MEAN CORPUSCULAR HEMOGLOBIN 30.1 pg (27.0-31.0); MEAN CORPUSCULAR HGB CONC 30.9 g/dL (32.0-36.0); MEAN CORPUSCULAR VOLUME 97.2 fL (81.0-99.0); MEAN PLATELET VOLUME 12.1 fL (7.9-10.8); MONOCYTES # (AUTO) 0.4 10^3/uL (0.0-1.0); MONOCYTES % (AUTO) 7.1 %; NEUTROPHILS # (AUTO) 2.9 10^3/uL (1.5-6.6); NEUTROPHILS % (AUTO) 53.2 %; PLT - PLATELET COUNT 153 10^3/uL (130-450); RED BLOOD COUNT 3.86 10^6/uL (4.20-5.40); RED CELL DISTRIBUTION WIDTH 13.2 % (12.0-15.0); WHITE BLOOD COUNT 5.4 x10^3/uL (4.8-10.8)
[2022-07-02 12:27] LABS: ALBUMIN 3.9 g/dL (3.2-5.5); ALBUMIN/GLOBULIN RATIO 1.4 (1.0-2.2); ALKALINE PHOSPHATASE 62 IU/L (42-121); ALT ALANINE AMINOTRANSFERASE 20 IU/L (10-60); AST ASPARTATE AMINOTRANSFERASE 26 IU/L (10-42); BILIRUBIN,TOTAL 0.5 mg/dL (0.2-1.0); BUN - BLOOD UREA NITROGEN 22 mg/dL (6-20); CALCIUM 9.1 mg/dL (8.5-10.3); CARBON DIOXIDE - CO2 32 mmol/L (21-32); CHLORIDE 105 mmol/L (101-111); CHOL/HDL RATIO 2.6 (<4.4); CHOLESTEROL 136 mg/dL; GFR - MDRD 53 (>89); GLUCOSE 98 mg/dL (70-100); HDL CHOLESTEROL 52 mg/dL; LDL CHOLESTEROL,CALCULATED 60 mg/dL; LDL/HDL RATIO 1.2 (<4.4); POTASSIUM 4.3 mmol/L (3.5-5.0); SODIUM 142 mmol/L (135-145); TOTAL PROTEIN 6.6 g/dL (6.7-8.2); TRIGLYCERIDES 122 mg/dL; VLDL CHOLESTEROL 24 mg/dL
== END 2022-07-02 07:22 | disposition home or self-care (01) ==
LOC: LAB.N 07:21
PROVIDERS: ATTEND Physician Assistant Medical
DX: E78.5 Hyperlipidemia, unspecified (principal); I10 Essential (primary) hypertension
CPT/HCPCS: 36415; 80053; 80061; 83721; 85025

== ENCOUNTER 2022-08-14 12:38 | Outpatient (CLI) | payer MEDICARE, BC ==
--- NOTE | 2022-08-14 14:13 | Ultrasound Report ---
PROCEDURE: Ext Limited Non Vascular INDICATIONS: SOFT TISSUE MASS TECHNIQUE: Real-time scanning was performed of the antecubital fossa, with image documentation. COMPARISON: None. FINDINGS: Targeted ultrasound of the intervertebral fossa demonstrates a nonocclusive thrombus with slow vascular flow within a superficial vein. IMPRESSION: Superficial thrombosis in the right antecubital vein, and region of concern. Reviewed by: Shiva Hale on 08/14/2022 2:12 PM PDT Approved by: Shiva Hale on 08/14/2022 2:12 PM PDT Station ID: [id number]
== END 2022-08-14 12:39 | disposition home or self-care (01) ==
LOC: DI 12:38
PROVIDERS: ATTEND Physician Assistant Medical
DX: I82.611 Acute embolism and thrombosis of superficial veins of right upper extremity (principal)

== ENCOUNTER 2023-01-09 08:16 | Outpatient (CLI) | payer MEDICARE, BC ==
[2023-01-09 11:59] LABS: ALBUMIN 3.9 g/dL (3.2-5.5); ALBUMIN/GLOBULIN RATIO 1.5 (1.0-2.2); ALKALINE PHOSPHATASE 68 IU/L (42-121); ALT ALANINE AMINOTRANSFERASE 17 IU/L (10-60); AST ASPARTATE AMINOTRANSFERASE 21 IU/L (10-42); BILIRUBIN,TOTAL 0.6 mg/dL (0.2-1.0); BUN - BLOOD UREA NITROGEN 21 mg/dL (6-20); CALCIUM 9.2 mg/dL (8.5-10.3); CARBON DIOXIDE - CO2 32 mmol/L (21-32); CHLORIDE 103 mmol/L (101-111); CHOL/HDL RATIO 2.5 (<4.4); CHOLESTEROL 119 mg/dL; GFR - MDRD 53 (>89); GLUCOSE 87 mg/dL (74-104); HDL CHOLESTEROL 47 mg/dL; LDL CHOLESTEROL,CALCULATED 49 mg/dL; POTASSIUM 4.5 mmol/L (3.5-4.5); SODIUM 138 mmol/L (135-145); TOTAL PROTEIN 6.5 g/dL (6.4-8.9); TRIGLYCERIDES 117 mg/dL (48-352); VLDL CHOLESTEROL 23 mg/dL
== END 2023-01-09 08:17 | disposition home or self-care (01) ==
LOC: LAB.N 08:16
PROVIDERS: ATTEND Physician Assistant Medical
DX: E78.5 Hyperlipidemia, unspecified (principal)
CPT/HCPCS: 36415; 80053; 80061; 83721

== ENCOUNTER 2023-01-25 13:12 | Outpatient (CLI) | payer MEDICARE, BC ==
--- NOTE | 2023-01-26 11:44 | XRAY Report ---
PROCEDURE: Lumbar Spine 2 View INDICATIONS: BACK PAIN TECHNIQUE: 3 views of the lumbar spine were acquired. COMPARISON: Lumbar spine radiograph on November 27, 2015 FINDINGS: Bones: 5 dcj-gui-ndrowod vertebrae are present. Diffuse osseous demineralization and overlying bowel gas limit evaluation for subtle fracture. Within these limitations, no acute fracture or traumatic s ubluxation. 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 Grade 1 anterolisthesis of L4 and L5 of approximately 1 cm, as before. Moderate to marked multilevel degenerative changes of the spine with osteophytosis, disc height loss and facet arthropathy. Partially visualized bilateral total hip arthroplasties. Soft tissues: Overlying bowel gas pattern is normal. No suspicious soft tissue calcifications. Abo ve-average colonic stool burden. IMPRESSION: 1. Diffuse osseous demineralization and bowel gas limit evaluation for subtle nondisplaced fracture. Within these limitations, no acute fracture or traumatic subluxation. If pain persists, consider cros s-sectional imaging for further evaluation. 2. Above-average colonic stool burden which may correlate with constipation. Reviewed by: Johana Duran MD on 01/26/2023 11:43 AM PST Approved by: Johana Duran MD on 01/26/2023 11:43 AM PST Station ID: [id number]
--- NOTE | 2023-01-26 11:49 | XRAY Report ---
PROCEDURE: Thoracic Spine 2 View INDICATIONS: BACK PAIN TECHNIQUE: 2 views of the thoracic spine were acquired. COMPARISON: CT chest on March 10, 2017 FINDINGS: Bones: No fractures or dislocations. No suspicious bony lesions. 12 pairs of ribs are noted, and a ppear intact where visualized. Moderate multilevel degenerative changes with osteophytosis, disc hei ght loss and facet arthropathy. Mild anterior wedging of the lower thoracic vertebral bodies, stable compared to prior CT. Soft tissues: No paravertebral stripe thickening. Visualized lungs are clear. Normal mediastinal con tour. IMPRESSION: 1.No acute bony abnormality. 2.Moderate multilevel degenerative changes of the spine. Reviewed by: Johana Duran MD on 01/26/2023 11:48 AM PST Approved by: Johana Duran MD on 01/26/2023 11:48 AM PST Station ID: [id number]
--- NOTE | 2023-01-26 11:51 | XRAY Report ---
PROCEDURE: Cervical Spine 2 View INDICATIONS: BACK PAIN TECHNIQUE: 3 view(s) of the cervical spine were acquired. COMPARISON: None. FINDINGS: Bones: Lateral view extends from the skull base to C7. No acute fracture or traumatic subluxation. Ma rked multilevel degenerative changes with anterior osteophytosis, disc height loss and facet arthropa thy/uncal hypertrophy, notably at C4-C5 and C5-C6. Soft tissues: No prevertebral soft tissue swelling. Visualized lungs are clear. IMPRESSION: 1.No acute fracture or traumatic subluxation. 2.Marked multilevel degenerative changes of the spine, notably at C4-5 and C5-6. Reviewed by: Johana Duran MD on 01/26/2023 11:50 AM PST Approved by: Johana Duran MD on 01/26/2023 11:50 AM PST Station ID: [id number]
== END 2023-01-25 13:13 | disposition home or self-care (01) ==
LOC: DI 13:12
PROVIDERS: ATTEND Physician Assistant Medical
DX: M47.816 Spondylosis without myelopathy or radiculopathy, lumbar region (principal); M51.86 Other intervertebral disc disorders, lumbar region; M47.814 Spondylosis without myelopathy or radiculopathy, thoracic region; M51.84 Other intervertebral disc disorders, thoracic region; M47.812 Spondylosis without myelopathy or radiculopathy, cervical region; M50.821 Other cervical disc disorders at C4-C5 level; M81.0 Age-related osteoporosis without current pathological fracture

== ENCOUNTER 2023-02-21 15:09 | Outpatient (CLI) | payer MEDICARE, BC ==
--- NOTE | 2023-02-21 18:37 | DEXA Report ---
PROCEDURE: Dexa Spine and/or Hip INDICATIONS: POST MENOPAUSAL TECHNIQUE: Dual energy x-ray absorptiometry (DEXA) was performed in the regions detailed below. Bilat eral hip replacements COMPARISON: 11/27/2015 FINDINGS: Lumbar Spine: Bone Mineral Density 1.337 g/cm/cm,T score 1.3. Previously 0.3 Left Forearm: Bone Mineral Density 0.685 g/cm/cm, T score 0.2. Previously 0.2 (T score greater or equal to -1.0: NORMAL) (T score from -1.1 to -2.4: OSTEOPENIA) (T score less than or equal to -2.5 to: OSTEOPOROSIS) IMPRESSION: Normal bone mineralization Patients with diagnosis of osteoporosis or osteopenia should have regular bone mineral density assess ment. For those eligible for Medicare, routine testing is allowed once every 2 years. Testing frequ ency can be increased for patients who have rapidly progressing disease or for those who are receivin g medical therapy to restore bone mass. Reviewed by: Bassam Mcbride MD on 02/21/2023 5:35 PM [place] Approved by: Bassam Mcbride MD on 02/21/2023 5:35 PM [place] Station ID: [id number]
== END 2023-02-21 15:10 | disposition home or self-care (01) ==
LOC: DI 15:09
PROVIDERS: ATTEND Physician Assistant Medical
DX: Z78.0 Asymptomatic menopausal state (principal); Z96.643 Presence of artificial hip joint, bilateral

== ENCOUNTER 2023-04-22 08:01 | Outpatient (CLI) | payer BC, MEDICARE, OTHER ==
--- NOTE | 2023-04-23 09:30 | Mammography Report ---
BILATERAL DIGITAL SCREENING MAMMOGRAM 3D/2D: 04/22/2023 CLINICAL: Routine screening. Comparison is made to exams dated: 03/14/2022 mammogram, 10/03/2020 mammogram, 09/08/2019 mammogram, 07/20 mammogram, 07/10/2017 mammogram, and 07/08/2016 mammogram - [facility]. Both breasts are heterogeneously dense, which may obscure small masses (category c / 51-75% glandular tissue). There is possible architectural distortion in the right breast at 12 o'clock middle depth. No other significant masses, calcifications, or other findings are seen in either breast. IMPRESSION: INCOMPLETE: NEEDS ADDITIONAL IMAGING EVALUATION Possible architectural distortion in the right breast is indeterminate. A diagnostic mammogram and u ltrasound is recommended. Based on the Tyrer Cuzick model (a risk assessment model) the patient's lifetime risk is 2.6% and her 10 year risk is 0.0%. According to the ACR, ACS, and NCCN guidelines, an annual breast MRI exam jerald g with mammogram is recommended if the patient's lifetime risk is 20% or greater. This exam was interpreted at Station ID: [id number]. NOTE: For mammograms, a report in lay terms will be sent to the patient. Approximately 15% of breast malignancies will not be visualized mammographically. In the management of a palpable breast mass, a negative mammogram must not discourage biopsy of a clinically suspicious lesion. Electronically Signed By: Aminah Little M.D., PH.D eb/:04/22/2023 18:09:04 ACR BI-RADS Category 0: Incomplete 3340F PARENCHYMAL PATTERN: (D) - The breast(s) demonstrate(s) heterogeneously dense fibroglandular parenchy ma. BI-RADS CATEGORY: (0) - 0 Mammo and [place] [id number] Immediate follow-up LATERALITY: (B)
== END 2023-04-22 08:02 | disposition home or self-care (01) ==
LOC: DI.N 08:01
DX: Z12.31 Encounter for screening mammogram for malignant neoplasm of breast (principal); R92.333 Mammographic heterogeneous density, bilateral breasts; R92.8 Other abnormal and inconclusive findings on diagnostic imaging of breast

== ENCOUNTER 2023-05-26 10:40 | Outpatient (CLI) | payer MEDICARE ==
--- NOTE | 2023-05-27 10:10 | Mammography Report ---
UNILATERAL RIGHT DIGITAL DIAGNOSTIC MAMMOGRAM 3D/2D WITH LATEROMEDIAL SPOT COMPRESSION: 05/26/2023 CLINICAL: Patient returns today to evaluate an architectural distortion in the right breast. Comparison is made to exams dated: 04/22/2023 mammogram, 03/14/2022 mammogram, 10/03/2020 mammogram, and 09/08/2019 mammogram - [facility]. The right breast is heterogeneously dense, which may obscure small masses (category c / 51-75% glandu lar tissue). There is architectural distortion in the right breast at 12 o'clock middle depth. This is not seen i n additional views. No other significant masses or calcifications are seen in the breast. IMPRESSION: INCOMPLETE: NEEDS ADDITIONAL IMAGING EVALUATION The architectural distortion in the right breast is indeterminate. A targeted ultrasound is recommended and will immediately follow. Based on the Tyrer Cuzick model (a risk assessment model) the patient's lifetime risk is 2.6% and her 10 year risk is 0.0%. According to the ACR, ACS, and NCCN guidelines, an annual breast MRI exam jerald g with mammogram is recommended if the patient's lifetime risk is 20% or greater. This exam was interpreted at Station ID: [id number]. NOTE: For mammograms, a report in lay terms will be sent to the patient. Approximately 15% of breast malignancies will not be visualized mammographically. In the management of a palpable breast mass, a negative mammogram must not discourage biopsy of a clinically suspicious lesion. Electronically Signed By: Eleuterio Vargas M.D. slc/:05/26/2023 11:41:09 ACR BI-RADS Category 0: Incomplete 3340F PARENCHYMAL PATTERN: (D) - The breast(s) demonstrate(s) heterogeneously dense fibroglandular parliliamy ma. BI-RADS CATEGORY: (0) - 0 Ultrasound [id number] Immediate follow-up LATERALITY: (B)
--- NOTE | 2023-05-27 10:10 | Ultrasound Report ---
LIMITED ULTRASOUND OF RIGHT BREAST: 05/26/2023 CLINICAL: Patient returns today to evaluate a focal asymmetry or possible distortion in the right jonathan ast. Comparison is made to exams dated: 04/22/2023 mammogram, 03/14/2022 mammogram, 10/03/2020 mammogram, 05/02 mammogram, and 09/08/2019 mammogram - [facility]. Color flow and real-time ultrasound of the right breast 12 o'clock region were performed. Billy scale images of the real-time examination were reviewed. No significant abnormalities were seen sonographically in the right breast in the region of possible architectural distortion. IMPRESSION: NEGATIVE There is no sonographic evidence of malignancy. A 1 year screening mammogram is recommended. Exam findings were conveyed to the patient. This exam was interpreted at Station ID: [id number]. Electronically Signed By: Eleuterio Vargas M.D. slc/:05/26/2023 11:39:53 Ultrasound BI-RADS: 1 Negative BI-RADS CATEGORY: (1) - 1 RECOMMENDATION: (ANNUAL) - Recommend routine annual screening mammography. [id number] 1 year screening LATERALITY: (B)
== END 2023-05-26 10:41 | disposition home or self-care (01) ==
LOC: DI 10:40
PROVIDERS: ATTEND Physician Assistant Medical
DX: R92.8 Other abnormal and inconclusive findings on diagnostic imaging of breast (principal); R92.331 Mammographic heterogeneous density, right breast

== ENCOUNTER 2023-07-08 07:41 | Outpatient (CLI) | payer MEDICARE ==
[2023-07-08 12:22] LABS: ALBUMIN/GLOBULIN RATIO 1.4 (1.0-2.2); ALKALINE PHOSPHATASE 70 IU/L (42-121); ALT ALANINE AMINOTRANSFERASE 18 IU/L (10-60); AST ASPARTATE AMINOTRANSFERASE 23 IU/L (10-42); BILIRUBIN,TOTAL 0.9 mg/dL (0.2-1.0); BUN - BLOOD UREA NITROGEN 26 mg/dL (6-20); CALCIUM 9.3 mg/dL (8.5-10.3); CARBON DIOXIDE - CO2 33 mmol/L (21-32); CHLORIDE 102 mmol/L (101-111); CHOL/HDL RATIO 2.2 (<4.4); CHOLESTEROL 116 mg/dL; CREATININE 1.1 mg/dL (0.6-1.3); GFR - MDRD 48 (>89); GLUCOSE 92 mg/dL (74-104); HDL CHOLESTEROL 53 mg/dL; LDL CHOLESTEROL,CALCULATED 43 mg/dL; LDL/HDL RATIO 0.8 (<4.4); POTASSIUM 4.1 mmol/L (3.5-4.5); SODIUM 139 mmol/L (135-145); TOTAL PROTEIN 6.8 g/dL (6.4-8.9); TRIGLYCERIDES 98 mg/dL (48-352); VLDL CHOLESTEROL 20 mg/dL
== END 2023-07-08 07:42 | disposition home or self-care (01) ==
LOC: LAB.N 07:41
PROVIDERS: ATTEND Physician Assistant Medical
DX: E78.5 Hyperlipidemia, unspecified (principal)
CPT/HCPCS: 36415; 80053; 80061; 83721